=== PATIENT | male | born 1995 ===

== ENCOUNTER → 2020-11-28 13:00 | Outpatient (ROUT) | payer OTHER, SELFPAY ==
[2020-11-28 13:31] LABS: COVID19 -Nasal RAPID Negative (Negative)
== END ==
PROVIDERS: Visit Provider Family Medicine
DX: Z20.822 Contact with and (suspected) exposure to COVID-19 (principal)
CPT/HCPCS: 87635

== ENCOUNTER → 2021-02-19 15:21 | Outpatient (ROUT) | payer OTHER, SELFPAY ==
[2021-02-19 15:41] LABS: COVID19 -Nasal RAPID Negative (Negative)
== END ==
PROVIDERS: Visit Provider Family Medicine
DX: Z20.822 Contact with and (suspected) exposure to COVID-19 (principal)
CPT/HCPCS: 87635

== ENCOUNTER → 2021-05-30 13:00 | Outpatient (ROUT) | payer OTHER, SELFPAY ==
[2021-05-30 14:42] LABS: COVID19 -Nasal RAPID POSITIVE (Negative)
== END ==
PROVIDERS: Visit Provider Family Medicine
DX: U07.1 COVID-19 (principal)
CPT/HCPCS: 87635